=== PATIENT | male | born 1985 | race Caucasian/White ===

== ENCOUNTER 2021-12-04 15:02 | Emergency (ER) | payer OTHER ==
[~2021-12-04] VITALS: Ht 182.9 cm; Wt 99.1 kg
[2021-12-04 15:13] VITALS: BP 143/106; PULSE 130; TEMP 97.9
[2021-12-04] MEDS ORDERED: VALTREX 50500 MG/TAB PO (15:43)
== END 2021-12-04 15:47 | disposition home or self-care (01) ==
LOC: COL.ER 15:02
DX: S61.210A Laceration without foreign body of right index finger without damage to nail, initial encounter (principal); W29.8XXA Contact with other powered hand tools and household machinery, initial encounter

== ENCOUNTER 2022-03-11 06:11 | Emergency (ER) | payer OTHER ==
[~2022-03-11] VITALS: Ht 182.9 cm; Wt 99.1 kg
[~2022-03-11 06:11] MED LIST: VALTREX 50500 MG/TAB PO
[2022-03-11 06:23] VITALS: BP 121/95; TEMP 98.4
[2022-03-11] MEDS ORDERED: ROXICODONE 55 MG/TAB PO (07:40)
[2022-03-11 08:27] VITALS: PULSE 85
== END 2022-03-11 08:27 | disposition home or self-care (01) ==
LOC: COL.ER 06:11
DX: S93.401A Sprain of unspecified ligament of right ankle, initial encounter (principal); Z28.310 Unvaccinated for COVID-19; X50.1XXA Overexertion from prolonged static or awkward postures, initial encounter